=== PATIENT | male | born 1995 | race Two or more races ===

== ENCOUNTER 2018-01-18 21:49 | Emergency (ER) | payer SELFPAY ==
[~2018-01-18] VITALS: Ht 188 cm; Wt 90.7 kg
[~2018-01-18 21:49] MED LIST: METH36TA PO
[2018-01-18 22:53] VITALS: BP 139/53
--- NOTE | 2018-01-19 01:32 | NUR ---
PATIENT TO ER BED
[2018-01-19] MEDS ORDERED: TRAMADOL HCL 50 MG TABLET ONE (02:42)
[2018-01-19] MEDS: TRAMADOL HCL 50 MG TABLET PO ONE (02:46)
== END 2018-01-19 02:47 | disposition home or self-care (01) ==
LOC: ER 21:52
DX: G89.29 Other chronic pain (principal); M54.42 Lumbago with sciatica, left side; Z71.6 Tobacco abuse counseling
CPT/HCPCS: 72110-TC; A4606; Z7610

== ENCOUNTER 2018-06-26 16:21 | Emergency (ER) | payer OTHER ==
[~2018-06-26] VITALS: Ht 182.9 cm; Wt 77.1 kg
[2018-06-26 16:51] VITALS: BP 118/74
[2018-06-26] MEDS ORDERED: KETOROLAC TROMETHAMINE INJ 60 MG/2 ML VIAL IM ONE ×2 (17:54→18:00)
[2018-06-26] MEDS ORDERED: oxyCODONE/APAP (5/325 MG) 1 UDTAB TABLET ONE (17:55)
[2018-06-26] MEDS ORDERED: oxyCODONE/APAP (5/325 MG) 1 UDTAB TABLET PO ONE (18:00)
== END 2018-06-26 18:58 | disposition home or self-care (01) ==
LOC: ER 16:21
DX: M54.41 Lumbago with sciatica, right side (principal); M54.42 Lumbago with sciatica, left side; F17.200 Nicotine dependence, unspecified, uncomplicated
CPT/HCPCS: 96372; 99283; A4606; J1885; Z7610

== ENCOUNTER 2019-05-22 13:35 | Emergency (ER) | payer OTHER ==
--- NOTE | 2019-05-22 14:15 | NUR ---
CALLED TO TRIAGE NO ANSWER
--- NOTE | 2019-05-22 14:28 | NUR ---
CALLED TO TRIAGE NO ANSWER
--- NOTE | 2019-05-22 14:58 | NUR ---
called to triage,no answer
== END 2019-05-22 15:00 | disposition left against medical advice (07) ==
LOC: ER 13:36
DX: Z53.21 Procedure and treatment not carried out due to patient leaving prior to being seen by health care provider (principal)

== ENCOUNTER 2019-06-09 02:30 | Emergency (ER) | payer MEDICAID, OTHER ==
[~2019-06-09] VITALS: Ht 182.9 cm; Wt 80.3 kg
[2019-06-09 02:36] VITALS: BP 122/76
[2019-06-09] MEDS ORDERED: AZITHROMYCIN 250 MG TABLET PO ONE (03:00)
[2019-06-09] MEDS ORDERED: CEFTRIAXONE 500 MG VIAL IM ONE (03:00)
[2019-06-09] MEDS ORDERED: CEFTRIAXONE 500 MG VIAL ONE (03:04)
[2019-06-09] MEDS ORDERED: AZITHROMYCIN 250 MG TABLET ONE (03:04)
[2019-06-09] MEDS ORDERED: LIDOCAINE /MPF 1% VIAL 5 ML VIAL ONE (03:05)
[2019-06-09 03:18] LABS: APPEARANCE,URINE Slightly Cloudy (CLEAR); BILIRUBIN,URINE Negative (NEGATIVE); BLOOD, URINE Small Ery/uL (NEGATIVE); COLOR,URINE Other (YELLOW); KETONES,URINE Negative (NEGATIVE); LEUKOCYTE ESTERASE ,URINE Moderate (NEGATIVE); NITRITE, URINE Negative (NEGATIVE); PROTEIN,URINE Negative (NEGATIVE); UGLUCOSE Negative (NEGATIVE); UROBILINOGEN,URINE 0.2 EU/dL (0.2)
[2019-06-09 03:38] LABS: BACTERIA,URINE Few /HPF (None Seen); SQUAMOUS EPITHELIAL CELL,UR Rare /HPF (None Seen); WBC,URINE TOO NUMEROUS TO COUN /HPF (0-3)
== END 2019-06-09 03:18 | disposition home or self-care (01) ==
LOC: ER 02:38
DX: A64 Unspecified sexually transmitted disease (principal); F17.200 Nicotine dependence, unspecified, uncomplicated; Z79.899 Other long term (current) drug therapy
CPT/HCPCS: 81001; 87086; 87491; 87591; 96372; 99283; J0696; J3490; 81000-TC

== ENCOUNTER 2020-05-17 10:15 | Emergency (ER) | payer MEDICAID ==
[~2020-05-17] VITALS: Ht 190.5 cm; Wt 86.2 kg
--- NOTE | 2020-05-17 10:30 | NUR ---
"noticed white discharge comes out my penis x 2 days", denies any pain. Patient a/ox4, breathing even and unlabored, no sob noted.
--- NOTE | 2020-05-17 10:35 | NUR ---
URINE SENT TO LAB
--- NOTE | 2020-05-17 10:40 | NUR ---
DR. RODRÍGUEZ AT BEDSIDE FOR EVAL.
[2020-05-17] MEDS ORDERED: AZITHROMYCIN 250 MG TABLET ONE (11:00)
[2020-05-17] MEDS ORDERED: CEFTRIAXONE 500 MG VIAL IM ONE (11:00)
[2020-05-17] MEDS ORDERED: CEFTRIAXONE 500 MG VIAL ONE (11:00)
[2020-05-17] MEDS ORDERED: AZITHROMYCIN 250 MG TABLET PO ONE (11:00)
[2020-05-17] MEDS ORDERED: LIDOCAINE /MPF 1% VIAL 5 ML VIAL ONE (11:00)
[2020-05-17 11:03] LABS: BILIRUBIN,URINE NEGATIVE (NEGATIVE); BLOOD, URINE SMALL Ery/uL (NEGATIVE); LEUKOCYTE ESTERASE ,URINE MODERATE (NEGATIVE); NITRITE, URINE NEGATIVE (NEGATIVE); PH,URINE 8.5 (5.0-8.0); PROTEIN,URINE >=300 mg/dl (NEGATIVE); UGLUCOSE NEGATIVE (NEGATIVE); UROBILINOGEN,URINE 0.2 EU/dL (0.2)
[2020-05-17 11:04] LABS: COLOR,URINE STRAW (YELLOW)
[2020-05-17 11:10] LABS: BACTERIA,URINE Moderate /HPF (None Seen); WBC,URINE 81-100 /HPF (0-3)
--- NOTE | 2020-05-17 11:10 | NUR ---
Patient discharged to home in stable condition. Written and verbal after care instructions given. Patient verbalizes understanding of instruction.
[2020-05-17 11:11] VITALS: BP 106/71
[2020-05-17 11:11] LABS: SQUAMOUS EPITHELIAL CELL,UR Moderate /HPF (None Seen)
== END 2020-05-17 11:11 | disposition home or self-care (01) ==
LOC: ER 10:20
DX: N34.2 Other urethritis (principal); F17.200 Nicotine dependence, unspecified, uncomplicated; Z79.899 Other long term (current) drug therapy
CPT/HCPCS: 81001; 87086; 96372; 99283; J0696; J3490

== ENCOUNTER 2020-05-21 03:53 | Emergency (ER) | payer MEDICAID ==
[~2020-05-21] VITALS: Ht 190.5 cm; Wt 86.2 kg
[2020-05-21 03:58] VITALS: BP 101/69
[2020-05-21] MEDS ORDERED: FLUORESCEIN SODIUM OPHTH 1 EA STRIP ONE ×2 (04:09→04:14)
[2020-05-21] MEDS ORDERED: FLUORESCEIN SODIUM OPHTH 1 EA STRIP OP ONE (04:30)
[2020-05-21] MEDS ORDERED: TETRAcaine 5 ML BOTTLE EACHEYE ONE (04:30)
--- NOTE | 2020-05-21 04:38 | NUR ---
pt refused any tx. pt eloped from ED.
== END 2020-05-21 04:38 | disposition left against medical advice (07) ==
LOC: ER 03:53
DX: H57.12 Ocular pain, left eye (principal); Z79.899 Other long term (current) drug therapy

== ENCOUNTER 2020-05-28 08:22 | Emergency (ER) | payer MEDICAID ==
[~2020-05-28] VITALS: Ht 190.5 cm; Wt 95.3 kg
[2020-05-28 08:34] VITALS: BP 118/61
== END 2020-05-28 09:09 | disposition home or self-care (01) ==
LOC: ER 08:24
DX: H10.89 Other conjunctivitis (principal); Z79.899 Other long term (current) drug therapy

== ENCOUNTER 2020-10-24 09:14 | Emergency (ER) | payer MEDICAID ==
[~2020-10-24] VITALS: Ht 190.5 cm; Wt 82.1 kg
--- NOTE | 2020-10-24 09:40 | NUR ---
Patient came in to the er c/o lower back pain since the weekend. Worst today, non traumatic. On room air, breathing evenly and unlabored. Connected to the monitor and pulse ox. kept comfortable, will continue to monitor accordingly.
[2020-10-24] MEDS ORDERED: KETOROLAC TROMETHAMINE INJ 30 MG/ML VIAL ONE (12:00)
[2020-10-24] MEDS: KETOROLAC TROMETHAMINE INJ 60 MG/2 ML VIAL IM ONE (12:05)
[2020-10-24] MEDS ORDERED: HYDR-3976 GT (12:08)
--- NOTE | 2020-10-24 12:57 | NUR ---
Patient discharged to home in stable condition. Written and verbal after care instructions given. Patient verbalizes understanding of instruction.
[2020-10-24 12:58] VITALS: BP 108/63
== END 2020-10-24 12:58 | disposition home or self-care (01) ==
LOC: ER 09:20
DX: R07.89 Other chest pain (principal); F17.200 Nicotine dependence, unspecified, uncomplicated; Z79.899 Other long term (current) drug therapy
CPT/HCPCS: 71045; 93005; 96372; 99283; J1885

== ENCOUNTER 2021-01-26 10:56 | Emergency (ER) | payer MEDICAID ==
[~2021-01-26] VITALS: Ht 182.9 cm; Wt 90.7 kg
[~2021-01-26 10:56] MED LIST changes: +HYDR-3976 GT
--- NOTE | 2021-01-26 11:15 | NUR ---
THE PATIENT BIBS FOR C/O R FLANK AND L SIDE RIB AREA PAIN X 1 WEEK. RATES PAIN 8/10. NO APPARENT DEFORMITY NOTED. IN ROOM AIR AND DENIES SOB. RESPIRATION REGULAR AND UNLABORED. ATTACHED TO THE MONITOR.
[2021-01-26] MEDS ORDERED: KETOROLAC TROMETHAMINE INJ 30 MG/ML VIAL ONE (11:27)
[2021-01-26] MEDS ORDERED: KETOROLAC TROMETHAMINE INJ 30 MG/ML VIAL IM ONE (11:30)
--- NOTE | 2021-01-26 11:30 | NUR ---
THE PATIENT IS TAKEN TO RADIOLOGY DEPT FOR X RAY.
--- NOTE | 2021-01-26 11:38 | NUR ---
THE PATIENTIS BACK FROM RADIOLOGY DEPT.
[2021-01-26] MEDS ORDERED: IBUP-1953 PO (12:14)
--- NOTE | 2021-01-26 12:19 | NUR ---
Patient discharged to home in stable condition. Written and verbal after care instructions given. Patient verbalizes understanding of instruction.
[2021-01-26 12:20] VITALS: BP 122/62
== END 2021-01-26 12:20 | disposition home or self-care (01) ==
LOC: ER 10:56
DX: M54.5 Low back pain (principal); R07.89 Other chest pain; F17.200 Nicotine dependence, unspecified, uncomplicated; F98.8 Other specified behavioral and emotional disorders with onset usually occurring in childhood and adolescence; Z88.0 Allergy status to penicillin
CPT/HCPCS: 71046; 96372; 99283; J1885

== ENCOUNTER 2022-03-10 13:43 | Emergency (ER) | payer MEDICAID ==
[~2022-03-10] VITALS: Ht 177.8 cm; Wt 72.6 kg
[~2022-03-10 13:43] MED LIST changes: +IBUP-1953 PO
[2022-03-10 14:06] VITALS: BP 100/51
--- NOTE | 2022-03-10 14:06 | NUR ---
BIBS TO HAVE STITCHED ON MY STITCHES REMOVED FROM HIS FINGER, STITCHES WERE INTIALLY PLACED A COUPLE WEEKS AGO.
== END 2022-03-10 14:16 | disposition home or self-care (01) ==
LOC: ER 13:52
DX: Z48.02 Encounter for removal of sutures (principal); F17.200 Nicotine dependence, unspecified, uncomplicated; Z88.0 Allergy status to penicillin; Z79.899 Other long term (current) drug therapy

== ENCOUNTER 2022-07-09 05:29 | Emergency (ER) | payer MEDICAID ==
[~2022-07-09] VITALS: Ht 180.3 cm; Wt 77.1 kg
--- NOTE | 2022-07-09 06:22 | NUR ---
BIBSELF HOME C/O COUGH FOR THE PAST FEW DAYS. PT A/OX4. TOLERATING R/A WELL WITH NO RESP DISTRESS. CONNECTED PT TO POX AND MONITOR
--- NOTE | 2022-07-09 06:26 | NUR ---
DR JADYN HOLMAN AT PT'S BEDSIDE FOR EVAL
[2022-07-09] MEDS ORDERED: ACETAMINOPHEN 325 MG TABLET PO ONE (06:30)
[2022-07-09] MEDS ORDERED: BENZONATATE 100 MG CAPSULE PO PRN (06:30)
[2022-07-09] MEDS ORDERED: ACETAMINOPHEN ES 500 MG TABLET ONE (06:51)
--- NOTE | 2022-07-09 06:57 | NUR ---
COVID ANTIGEN, INFLUENZA, AND STREP SWAB COLLECTED AND SENT TO LAB
--- NOTE | 2022-07-09 06:59 | NUR ---
CALLED PHARMACY FOR TONYA MOON
--- NOTE | 2022-07-09 07:20 | NUR ---
RECEIVED PT FROM EMMANUEL MILLER PT ASLEEPY NO DISTRESS
--- NOTE | 2022-07-09 08:35 | NUR ---
RESTING AND ASLEEPY wating for lab result
[2022-07-09] MEDS ORDERED: BENZ-13 PO (09:41)
[2022-07-09] MEDS ORDERED: TYL2T PO (09:41)
[2022-07-09] MEDS ORDERED: BENZ1LOZ58 PO (09:41)
--- NOTE | 2022-07-09 09:48 | NUR ---
Patient discharged to home in stable condition. Written and verbal after care instructions given. Patient verbalizes understanding of instruction.
[2022-07-09 09:50] VITALS: BP 111/65
== END 2022-07-09 10:24 | disposition home or self-care (01) ==
LOC: ER 05:33
DX: J06.9 Acute upper respiratory infection, unspecified (principal); B97.89 Other viral agents as the cause of diseases classified elsewhere; Z20.822 Contact with and (suspected) exposure to COVID-19
CPT/HCPCS: 99283; 87426; 87804 ×2; 87880; C9803; 86403-TC

== ENCOUNTER 2023-05-15 12:11 | Emergency (ER) | payer MEDICAID ==
[~2023-05-15] VITALS: Ht 188 cm; Wt 95.3 kg
[~2023-05-15 12:11] MED LIST changes: +BENZ-13 PO; +BENZ1LOZ58 PO; +TYL2T PO
[2023-05-15 12:56] VITALS: BP 121/71; TEMP 98.3; O2SAT 98
== END 2023-05-15 12:57 | disposition home or self-care (01) ==
LOC: ER 12:11
DX: R10.9 Unspecified abdominal pain (principal); F17.200 Nicotine dependence, unspecified, uncomplicated; Z88.0 Allergy status to penicillin

== ENCOUNTER 2024-07-12 21:00 | Emergency (ER) | payer MEDICAID ==
[~2024-07-12] VITALS: Ht 188 cm; Wt 87.5 kg
[2024-07-12 23:59] LABS: BASOPHILS % (AUTO) 0.3 % (0.0-2.0); EOSINOPHILS % (AUTO) 0.4 % (0.0-6.0); HEMATOCRIT 40 % (39-51); HEMOGLOBIN 14.2 g/dL (13.5-17.5); LYMPHOCYTES # (AUTO) 1.3 K/uL (0.8-4.8); LYMPHOCYTES % (AUTO) 12.7 % (20.0-44.0); MEAN CORPUSCULAR HEMOGLOBIN 29 PG (26.0-33.0); MEAN CORPUSCULAR HGB CONC 35 g/dl (31.0-36.0); MEAN CORPUSCULAR VOLUME 83 fL (80-96); MONOCYTES # (AUTO) 0.6 K/uL (0.1-1.30); MONOCYTES % (AUTO) 5.9 % (2.0-12.0); NEUTROPHILS # (AUTO) 8.3 K/uL (1.8-8.9); NEUTROPHILS % (AUTO) 80.7 % (43.0-81.0); PLATELET COUNT (AUTO) 298 K/uL (150-450); RED BLOOD CELL COUNT(AUTO) 4.85 MIL/uL (4.5-6.0); RED CELL DISTRIBUTION WIDTH 12.8 % (11.5-15.0); WHITE BLOOD COUNT (AUTO) 10.3 K/uL (4.3-11.0)
[2024-07-13 00:04] LABS: APPEARANCE,URINE CLEAR (CLEAR); BILIRUBIN,URINE NEGATIVE (NEGATIVE); BLOOD, URINE NEGATIVE Ery/uL (NEGATIVE); COLOR,URINE YELLOW (YELLOW); KETONES,URINE NEGATIVE (NEGATIVE); LEUKOCYTE ESTERASE ,URINE NEGATIVE (NEGATIVE); NITRITE, URINE NEGATIVE (NEGATIVE); PROTEIN,URINE NEGATIVE (NEGATIVE); UGLUCOSE NEGATIVE (NEGATIVE)
[2024-07-13 00:05] LABS: CALCIUM, SERUM 9.2 mg/dL (8.5-10.1); CREATININE 0.8 mg/dL (0.6-1.3); POTASSIUM 3.9 mmol/L (3.5-5.1)
[2024-07-13 00:19] LABS: BARBITURATE, URINE NEGATIVE (NEGATIVE); BENZODIAZEPINE, URINE NEGATIVE (NEGATIVE); COCCAINE, URINE NEGATIVE (NEGATIVE); OPIATE, URINE NEGATIVE (NEGATIVE); PHENCYCLIDINE SCREEN,URINE NEGATIVE (NEGATIVE)
[2024-07-13 00:22] LABS: AMPHETAMINE, URINE POSITIVE (NEGATIVE); CANNABINOID, URINE POSITIVE (NEGATIVE)
[2024-07-13 00:24] LABS: ADD URINE CULTURE YES; BACTERIA,URINE Few /HPF (None Seen); SQUAMOUS EPITHELIAL CELL,UR Moderate /HPF (None Seen)
[2024-07-13 00:43] LABS: INR 1.06 (0.91-1.10); PARTIAL THROMBOPLASTIN TIME 25.1 SEC (24.3-34.3); PROTHROMBIN TIME 11.2 SECS (9.2-11.1)
[2024-07-13] MEDS ORDERED: KETO45GE2 TP (00:53)
[2024-07-13 01:06] VITALS: BP 118/80; TEMP 97.8; O2SAT 99
== END 2024-07-13 01:06 | disposition home or self-care (01) ==
LOC: ER 21:04
DX: B35.6 Tinea cruris (principal); R60.0 Localized edema; F17.200 Nicotine dependence, unspecified, uncomplicated; M79.89 Other specified soft tissue disorders; F19.10 Other psychoactive substance abuse, uncomplicated; Z88.0 Allergy status to penicillin
CPT/HCPCS: 36415; 71045-TC; 80048-TC; 81001; 83880; 85025-TC; 85730-TC; 87086-TC; 93970-TC